=== PATIENT | female | born 1965 | race Caucasian/White ===

== ENCOUNTER 2018-04-07 15:05 | Emergency (ER) | payer OTHER ==
[2018-04-07 15:15] VITALS: BP 119/46
--- NOTE | 2018-04-07 17:26 | ED ---
Back Pain - HPI Summary HPI Summary: Ms. Rich has had pain on the right side of her mid back for about a month. She cannot describe any exacerbating or relieving symptoms with the possible exception of a couple times when she ate add [employer]. She's had no fever or chills. There's been no change in her bowels or bladder. - History of Current Complaint Chief Complaint: UCBackPain Stated Complaint: LOWER BACK PAIN,SOB Time Seen by Provider: 04/07/18 16:26 Hx Obtained From: Patient Onset/Duration: Gradual Onset Onset/Duration: Started Weeks Ago Timing: Constant Back Pain Location: Is Discrete @ - Mid right back Severity Initially: Mild Severity Currently: Moderate Pain Intensity: 7 Character: Dull Aggravating Symptom(s): Other - see HPI Alleviating Symptom(s): Nothing Associated Signs And Symptoms: Positive: Negative - Allergies/Home Medications Allergies/Adverse Reactions: Allergies Allergy/AdvReac Type Severity Reaction Status Date / Time No Known Allergies Allergy Verified 04/07/18 15:15 Home Medications: Home Medications NK [No Home Medications Reported] 04/07/18 [History Confirmed 04/07/18] PMH/Surg Hx/FS Hx/Imm Hx Endocrine/Hematology History: Denies: Hx Diabetes, Hx Thyroid Disease Cardiovascular History: Denies: Hx Hypertension Respiratory History: Denies: Hx Asthma, Hx Chronic Obstructive Pulmonary Disease (COPD) GI History: Denies: Hx Ulcer Musculoskeletal History: Reports: Other Musculoskeletal History - Hx of plantar fasciitis - Cancer History Hx Chemotherapy: No Hx Radiation Therapy: No - Surgical History Surgery Procedure, Year, and Place: [address] [place] [address]. Infectious Disease History: No Infectious Disease History: Denies: Hx Hepatitis, Hx Human Immunodeficiency Virus (HIV), Traveled Outside the [place] in Last 30 Days - Family History Known Family History: Positive: None Family History: No FHx of breast CA - Social History Alcohol Use: Weekly Substance Use Type: Reports: None Hx Tobacco Use: No Smoking Status (MU): Never Smoked Tobacco Review of Systems Constitutional: Negative Negative: Fever, Chills Eyes: Negative ENT: Negative Cardiovascular: Negative Respiratory: Negative Gastrointestinal: Negative Genitourinary: Negative Musculoskeletal: Negative Skin: Negative Neurological: Negative Positive: Anxious All Other Systems Reviewed And Are Negative: Yes Physical Exam Triage Information Reviewed: Yes Vital Signs On Initial Exam: Initial Vitals Temp Pulse Resp BP Pulse Ox 97.7 F 77 18 119/46 98 04/07/18 15:10 04/07/18 15:10 04/07/18 15:10 04/07/18 15:10 04/07/18 15:10 Vital Signs Reviewed: Yes Appearance: Positive: Well-Appearing, No Pain Distress, Well-Nourished Skin: Positive: Warm, Skin Color Reflects Adequate Perfusion, Dry Eyes: Positive: Normal - anicteric ENT: Positive: Normal ENT inspection Neck: Positive: Supple Respiratory/Lung Sounds: Positive: Clear to Auscultation Cardiovascular: Positive: Normal Abdomen Description: Positive: Other: - Moderate RUQ tenderness with a positive Cheek's sign. Musculoskeletal: Positive: Normal Neurological: Positive: Normal Psychiatric: Positive: Normal Diagnostics - Vital Signs Vital Signs Temp Pulse Resp BP Pulse Ox 04/07/18 15:10 97.7 F 77 18 119/46 98 - Laboratory Lab Results: Lab Results 04/07/18 Range/Units 16:51 POC Urine Color Yellow POC Urine Clarity Clear POC Urine pH 6.0 (5-9) POC Ur Specif Richards 1.015 (1.010-1.030) POC Urine Protein Negative (Negative) POC Ur Glucose (UA) Negative (Negative) POC Urine Ketones Trace A (Negative) POC Urine Blood Negative (Negative) POC Urine Nitrite Negative (Negative) POC Urine Bilirubin Negative (Negative) POC Urine Urobilinogen 0.2 (Negative) POC U Leukocyte Esteras Negative (Negative) Lab Statement: Any lab studies that have been ordered have been reviewed, and results considered in the medical decision making process. Back Pain Course/Dx - Course Course Of Treatment: Ms. Rich has right upper quadrant tenderness and nonreproducible pain into her back. I'm concerned this could be a gallbladder issue although there are other possibilities. It was my recommendation that she get it worked up in the emergency department at this time but she does not want to go, the pain is been there for a month and she has an appointment tomorrow with her PCP in [place]. She will keep her appointment tomorrow. A urine here is negative. Labs are been sent and should be available to her PCP tomorrow. - Diagnoses Provider Diagnoses: Abdominal pain Discharge - Sign-Out/Discharge Documenting (check all that apply): Patient Departure All imaging exams completed and their final reports reviewed: Yes - Discharge Plan Condition: Stable Disposition: HOME Referrals: Gloria White [Primary Care Provider] - Additional Instructions: Please keep your appointment for 11:30 AM tomorrow morning. - Billing Disposition and Condition Condition: STABLE Disposition: Home
[2018-04-08 11:09] LABS: ABS Basophils 0.1 10^3/ul (0-0.2); ABS Eosinophils 0.4 10^3/ul (0-0.6); ABS Lymphocytes 2.7 10^3/ul (1.0-4.8); ABS Monocytes 0.6 10^3/ul (0-0.8); ABS Neutrophils 3.8 10^3/ul (1.5-7.7); ABS Nucleated RBC 0 10^3/ul; Eosinophil % 4.9 % (0-6); Hematocrit 43 % (35-47); Hemoglobin 14.3 g/dl (12.0-16.0); Lymphocyte % 35.4 % (25-47); Mean Corpuscular HGB Conc 33 g/dl (31-36); Mean Corpuscular Hemoglobin 29 pg (27-31); Mean Corpuscular Volume 88 fL (80-97); Mean Platelet Volume 8.3 fL (7.4-10.4); Nucleated Red Blood Cells % 0; Platelet Count 363 10^3/ul (150-450); Red Blood Count 4.89 10^6/ul (4.00-5.40); Red Cell Distribution Width 13 % (10.5-15); White Blood Count 7.5 10^3/ul (3.5-10.8)
[2018-04-08 11:25] LABS: EGFR Non-African American 58.7 (>60)
== END 2018-04-07 17:39 | disposition home or self-care (01) ==
LOC: UCEAST 15:05
DX: R10.11 Right upper quadrant pain (principal)
CPT/HCPCS: 36415; 80053; 81003; 83690; 85025; 86140; 99211; G0463